=== PATIENT | male | born 1980 | race Caucasian/White ===

== ENCOUNTER 2019-03-05 15:34 | Emergency (ER) | payer OTHER ==
[~2019-03-05] VITALS: Ht 175.3 cm; Wt 73.9 kg
[~2019-03-05 15:34] MED LIST: NONE PER PT
[2019-03-05 16:16] LABS: MICROSCOPIC NOT IND
[2019-03-05 16:18] LABS: CULTURE INDICATED? NO
--- NOTE | 2019-03-05 17:16 | NUR ---
room service clerk: Patient to room from lobby at this time.
--- NOTE | 2019-03-05 17:32 | NUR ---
PT C/O ABD PAIN LLQ THAT "COMES AND GOES". PAIN IN L TESTICLE ALSO REPORTED. PT DENIES DYSURIA, HEMATURIA, N/V/D, BACK PAIN, CP, NO PAIN ON PALPATION OF ABDOMEN. PT REPORTS PAIN AT THIS TIME IS 7/10 AT THIS TIME. ERMD IN TO DEBRA PT.
[2019-03-05 18:11] LABS: MEAN CORPUSCULAR HEMOGLOBIN 30.4 pg (27.5-34.5); MEAN CORPUSCULAR HGB CONC 33.6 g/dL (33.2-36.2); MEAN CORPUSCULAR VOLUME 90.6 fL (81-97); MEAN PLATELET VOLUME 8.7 fL (7.4-10.4); PLATELET COUNT 221 x10^3/uL (130-400); RED BLOOD COUNT 4.57 x10^6/uL (4.38-5.82); RED CELL DISTRIBUTION WIDTH 13.3 % (9.4-14.8)
--- NOTE | 2019-03-05 18:22 | NUR ---
PT AWAITING CT ABD.
[2019-03-05 18:23] VITALS: BP 112/79
[2019-03-05 18:25] LABS: ALANINE AMINOTRANSFERASE 21 U/L (12-78); ALBUMIN 3.5 g/dL (3.4-5.0); ANION GAP 6 mmol/L (5-15); CALCIUM 8.7 mg/dL (8.5-10.1); CHLORIDE 105 mmol/L (98-107); CREATININE 0.81 mg/dL (0.7-1.3)
[2019-03-05 18:26] LABS: ALKALINE PHOSPHATASE 71 U/L (45-117); BILIRUBIN,TOTAL 1.6 mg/dL (0.2-1.0); TOTAL PROTEIN 7.6 g/dL (6.4-8.2)
[2019-03-05 18:49] LABS: BASOPHILS # (AUTO) 0.01 x10^3/uL (0-0.1); BASOPHILS % (AUTO) 0 % (0-1); EOSINOPHILS # (AUTO) 0.03 x10^3/uL (0-0.4); EOSINOPHILS % (AUTO) 0 % (1-7); LYMPHOCYTES # (AUTO) 1.58 x10^3/uL (1-3.4); LYMPHOCYTES % (AUTO) 20 % (22-44); MD SCAN; MONOCYTES # (AUTO) 0.64 x10^3/uL (0.2-0.8); MONOCYTES % (AUTO) 8 % (2-9); NEUTROPHILS # (AUTO) 5.58 x10^3/uL (1.8-6.8); NEUTROPHILS % (AUTO) 71 % (42-75)
--- NOTE | 2019-03-05 19:00 | NUR ---
SBAR REPORT GIVEN TO NOC RNS
--- NOTE | 2019-03-05 19:04 | NUR ---
report recieved from herman saucedo
--- NOTE | 2019-03-05 19:13 | NUR ---
PT DIAGNOSTICS RESULTED. PT PLACED UP FOR RECHECK BY CASSANDRA ROBERTSON
== END 2019-03-05 19:36 | disposition home or self-care (01) ==
LOC: ED 19:00
DX: S39.011A Strain of muscle, fascia and tendon of abdomen, initial encounter (principal); X58.XXXA Exposure to other specified factors, initial encounter; Y93.89 Activity, other specified; Y92.89 Other specified places as the place of occurrence of the external cause; Y99.8 Other external cause status
CPT/HCPCS: 36415; 74176; 76857; 80053; 81003; 83690; 85025; 99284